=== PATIENT | female | born 1995 | race Caucasian/White ===

== ENCOUNTER 2020-03-10 22:18 | Emergency (ER) | payer OTHER ==
[~2020-03-10] VITALS: Ht 167.6 cm; Wt 49.0 kg
[2020-03-10] MEDS ORDERED: DICLOFENAC SODI75 MG PO (23:37)
== END 2020-03-10 23:53 | disposition home or self-care (01) ==
LOC: ER 22:18
DX: M62.838 Other muscle spasm (principal)

== ENCOUNTER → 2020-03-13 | Emergency (ER) | payer OTHER ==
[~2020-03-13] VITALS: Ht 167.6 cm; Wt 49.0 kg
[~2020-03-13] MED LIST: DICLOFENAC SODI75 MG PO
== END | disposition left against medical advice (07) ==
LOC: ER 17:59
DX: Z53.21 Procedure and treatment not carried out due to patient leaving prior to being seen by health care provider (principal)